=== PATIENT | female | born 1980 | race American Indian/Alaskan Native ===

== ENCOUNTER 2017-11-17 07:29 | Emergency (ER) | payer MEDICAID ==
[2017-11-17 07:29] VITALS: BMI 36.8
[2017-11-17] MEDS ORDERED: Oxycodone/Acetaminophen 5/325 mg Tab PO STA (07:52)
[2017-11-17 08:07] VITALS: RESP 20
[2017-11-17] MEDS ORDERED: Oxycodone/Acetaminophen 5/325 mg Tab PO ONE (08:15)
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
[2017-11-17 08:55] VITALS: BP 131/77; PULSE 72; TEMP 98.2; O2SAT 100
--- NOTE | 2017-11-17 08:57 | CT ---
PROCEDURE: CT Abdomen and Pelvis without intravenous contrast HISTORY: pain COMPARISON: None. TECHNIQUE: Axial and reformatted coronal and sagittal CT images of the abdomen and pelvis were obtained without IV or oral contrast administration.. Contrast Dose: 0 Radiation dose: Total exam DLP = 612.03 mGy-cm. This CT exam was performed using one or more of the following dose reduction techniques: Automated exposure control, adjustment of the mA and/or kV according to patient size, and/or use of iterative reconstruction technique. FINDINGS: LOWER THORAX: No evidence of acute pathology at the lung bases. LIVER: UnremarkableMild hepatomegaly is noted. No overt mass lesion noted in this noncontrast enhanced study. . No gross lesion or ductal dilatation. GALLBLADDER AND BILE DUCTS: Status post cholecystectomy. PANCREAS: Unremarkable. No gross lesion or ductal dilatation. SPLEEN: Unremarkable. ADRENALS: Unremarkable. No mass. KIDNEYS AND URETERS: No evidence of nephrolithiasis or hydronephrosis. VASCULATURE: Unremarkable. No aortic aneurysm. BOWEL: Mild constipation is noted. . No obstruction. No gross mural thickening. There are scattered colonic diverticulosis without definite evidence of diverticulitis. APPENDIX: There is no evidence of appendicitis. PERITONEUM: Unremarkable. No free fluid. No free air. LYMPH NODES: Prominent bilateral inguinal lymph nodes are noted. No evidence of significant retroperitoneal lymphadenopathy. BLADDER: Unremarkable. REPRODUCTIVE: Unremarkable. BONES: No acute fracture. OTHER FINDINGS: None. IMPRESSION: No evidence of nephrolithiasis or hydronephrosis. No evidence of acute pathology in the abdomen and pelvis.
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
== END 2017-11-17 09:24 | disposition home or self-care (01) ==
LOC: C.ER 07:29
DX: S02.2XXA Fracture of nasal bones, initial encounter for closed fracture (principal); S30.0XXA Contusion of lower back and pelvis, initial encounter; T14.8XXA Other injury of unspecified body region, initial encounter; Y04.0XXA Assault by unarmed brawl or fight, initial encounter

== ENCOUNTER 2018-01-14 20:06 | Emergency (ER) | payer MEDICAID ==
[2018-01-14 20:06] VITALS: BMI 36.8
[2018-01-14 20:34] VITALS: BP 135/87; PULSE 48; RESP 16; TEMP 97.6; O2SAT 100
--- NOTE | 2018-01-14 21:39 | C.PDOC ---
History Of Present Illness 37 yo female c/o atraumatic left knee pain for 1 week associated with swelling. Denies h/o gout. No change in sensation. Has not taken any medication. Denies any lower leg pain or swelling. No sob. No trauma. Time Seen by Provider: 01/14/18 21:31 Chief Complaint (Nursing): Lower Extremity Problem/Injury History Per: Patient History/Exam Limitations: no limitations Onset/Duration Of Symptoms: Days Current Symptoms Are (Timing): Still Present Past Medical History Vital Signs: Last Vital Signs Temp 97.6 F 01/14/18 20:30 Pulse 48 L 01/14/18 20:30 Resp 16 01/14/18 20:30 BP 135/87 01/14/18 20:30 Pulse Ox 100 01/14/18 22:36 - Medical History PMH: Asthma, Seizures Denies: Depression Surgical History: Cholecystectomy - [facility] Procedures INJECT/INFUSE ELECTROLYT (07/16/13) INJECT/INFUSE NEC (07/16/13) Family History: States: Unknown Family Hx - Social History Hx Tobacco Use: Yes Hx Alcohol Use: Yes Hx Substance Use: Yes - Immunization History Hx Tetanus Toxoid Vaccination: No Hx Influenza Vaccination: No Hx Pneumococcal Vaccination: No Review Of Systems Except As Marked, All Systems Reviewed And Found Negative. Musculoskeletal: Positive for: Other (knee pain) Physical Exam - Physical Exam Appears: Well, Non-toxic, No Acute Distress Skin: Normal Color, Warm, Dry Head: Atraumatic, Normacephalic Eye(s): bilateral: Normal Inspection, EOMI Nose: Normal Oral Mucosa: Moist Neck: Normal, Normal ROM, Supple Chest: Symmetrical Respiratory: No Accessory Muscle Use Back: Normal Inspection Extremity: No Normal ROM (decreased ROM secondary to pain), Tenderness (diffuse tenderness to the knee), No Calf Tenderness, Capillary Refill (< 2 sec), No Swelling Extremity: Bilateral: Normal Color And Temperature, Normal ROM Pulses: Left Dorsalis Pedis: Normal, Right Dorsalis Pedis: Normal Neurological/Psych: Oriented x3, Normal Speech, Normal Motor, Normal Sensation ED Course And Treatment O2 Sat by Pulse Oximetry: 100 - Other Rad Knee XR X-Ray: Interpreted by Me, Viewed By Me Interpretation: No fx or dislocation Progress Note: Toradol ordered. Pt notes improvement of pain. Instructed RICE and f/u with ortho in 1-2 days. Disposition - Disposition Referrals: Seferino Olson III, MD [Staff Provider] - Disposition: HOME/ ROUTINE Disposition Time: 22:34 Condition: STABLE Additional Instructions: Rest and ice the area. Follow up with PMD in 1-2 days. Return to ER if symptoms persist or worsen. Prescriptions: Naproxen [Naprosyn] 1 tab PO BID PRN #20 tab PRN Reason: Pain Instructions: Knee Pain (DC) Forms: [employer] (Togolese) - Clinical Impression Clinical Impression: Knee sprain
--- NOTE | 2018-01-15 08:22 | RAD ---
PROCEDURE: Left Knee Radiographs. HISTORY: Pain. COMPARISON: None. FINDINGS: BONES: . No fracture. Trace tibial spine spurring JOINTS: Probable very early trace osteoarthritis. Medial femoral tibial joint space mild narrowing JOINT EFFUSION: Suggested OTHER FINDINGS: None. IMPRESSION: Probable very early degenerative changes. Suprapatellar joint effusion suggested
== END 2018-01-14 23:09 | disposition home or self-care (01) ==
LOC: C.ER 20:06
DX: S83.92XA Sprain of unspecified site of left knee, initial encounter (principal); X58.XXXA Exposure to other specified factors, initial encounter
CPT/HCPCS: 73562; 96372; 99285; J1885

== ENCOUNTER 2018-10-01 11:48 | Emergency (ER) | payer MEDICAID ==
[2018-10-01 11:48] VITALS: BMI 36.8
[2018-10-01] MEDS ORDERED: Sodium Chloride 0.9% 1,000 ML IV ONE (13:40)
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
--- NOTE | 2018-10-01 14:56 | CT ---
Date of service: 10/01/2018 PROCEDURE: CT HEAD WITHOUT CONTRAST. HISTORY: head injury, r/o bleed COMPARISON: Noncontrast head CT performed 11/17/17 TECHNIQUE: Axial computed tomography images were obtained through the head/brain without intravenous contrast. Radiation dose: Total exam DLP = 2212.02 mGy-cm. This CT exam was performed using one or more of the following dose reduction techniques: Automated exposure control, adjustment of the mA and/or kV according to patient size, and/or use of iterative reconstruction technique. FINDINGS: Examination limited by motion. Streak artifact obscures evaluation of the skull base. HEMORRHAGE: No intracranial hemorrhage. BRAIN: No mass effect or edema. The naranjo-white matter differentiation appears intact. Please note that MRI with diffusion imaging is more sensitive in the detection of acute ischemic event. VENTRICLES: No hydrocephalus. CALVARIUM: Unremarkable. PARANASAL SINUSES: Unremarkable as visualized. No significant inflammatory changes. MASTOID AIR CELLS: Unremarkable as visualized. No inflammatory changes. OTHER FINDINGS: None. IMPRESSION: No acute intracranial pathology identified.
--- NOTE | 2018-10-01 15:31 | RAD ---
PROCEDURE: Left Hand Radiographs. HISTORY: left hand injury COMPARISON: None available. FINDINGS: BONES: No acute displaced fracture. JOINTS: No dislocation. SOFT TISSUES: Unremarkable. No evidence of radiopaque foreign body. OTHER FINDINGS: None. IMPRESSION: No acute displaced fracture, dislocation, or significant joint effusion identified. If symptoms persist, or if there is continued clinical concern, x-ray follow-up in 7-10 days should be considered.
[2018-10-01 16:02] VITALS: BP 116/79; PULSE 78; RESP 18; TEMP 98; O2SAT 98
== END 2018-10-01 16:03 | disposition home or self-care (01) ==
LOC: C.ER 11:48
DX: G40.409 Other generalized epilepsy and epileptic syndromes, not intractable, without status epilepticus (principal); Z91.14 Patient's other noncompliance with medication regimen; S09.90XA Unspecified injury of head, initial encounter; W22.8XXA Striking against or struck by other objects, initial encounter